=== PATIENT | female | born 1950 | race Caucasian/White ===

== ENCOUNTER 2018-12-09 20:28 | Emergency (ER) | payer MEDICARE, BC ==
[~2018-12-09] VITALS: Ht 162.6 cm; Wt 99.8 kg
[~2018-12-09 20:28] MED LIST: ASPI325 PO; OMEP40CA12 PO
[2018-12-09 21:28] LABS: BASOPHILS ABSOLUTE AUTO 0.03 K/mm3 (0.00-0.23); BASOPHILS PERCENT AUTO 1 % (0-2); EOSINOPHILS ABSOLUTE AUTO 0.12 K/mm3 (0.00-0.68); EOSINOPHILS PERCENT AUTO 3 % (0-6); Hemoglobin 12.2 g/dL (11.5-16.0); IMMATURE GRAN ABSOLUTE AUTO 0.02 K/mm3 (0.00-0.10); IMMATURE GRAN PERCENT AUTO 0 % (0-1); LYMPHOCYTES ABSOLUTE AUTO 0.89 K/mm3 (0.84-5.20); LYMPHOCYTES PERCENT AUTO 19 % (21-46); MONOCYTES ABSOLUTE AUTO 0.46 K/mm3 (0.16-1.47); MONOCYTES PERCENT AUTO 10 % (4-13); Mean Corpuscular HGB 29.3 pg (26.0-34.0); Mean Corpuscular HGB Conc 32.1 g/dL (31.5-36.5); Mean Corpuscular Volume 91 fL (80-100); Mean Platelet Volume 10.4 fL (9.1-12.4); NEUTROPHILS ABSOLUTE AUTO 3.06 K/mm3 (1.96-9.15); NEUTROPHILS PERCENT AUTO 67 % (41-73); Platelet Count 306 K/mm3 (150-400); RDW Coefficient Variation 13.5 % (11.7-14.2); RDW Standard Deviation 44.6 fL (35.1-46.3); Red Blood Cell Count 4.17 M/mm3 (3.80-5.20); White Blood Cell Count 4.58 K/mm3 (4.00-11.30)
[2018-12-09 21:34] LABS: Alanine Aminotransfer (ALT/SGP 27 U/L (12-78); Albumin, Blood 3.7 g/dL (3.4-5.0); Albumin/Globulin Ratio 1.1 (0.8-1.8); Alk Phos 83 U/L (50-136); Anion Gap 6 mmol/L (6-16); Aspartate Aminotrans (AST/SGOT 17 U/L (12-37); Bilirubin, Total 0.2 mg/dL (0.1-1.0); Blood Urea Nitrogen 13 mg/dL (8-24); Bun/Creatinine Ratio 12.6 (12.0-20.0); CO2, Blood 27 mmol/L (21-32); Calcium, Blood 8.1 mg/dL (8.5-10.1); Chloride, Blood 110 mmol/L (98-108); Creatinine, Blood 1.03 mg/dL (0.40-1.00); Globulin, Blood 3.5 g/dL (2.2-4.0); Glomerular Filtration Rate 56 (60-); Glucose, Blood 143 mg/dL (70-99); Potassium, Blood 3.8 mmol/L (3.5-5.5); Sodium, Blood 143 mmol/L (136-145); Total Protein, Blood 7.2 g/dL (6.4-8.2); Troponin I <0.015 ng/mL (0.000-0.040)
[2018-12-11] MEDS ORDERED: CEPH500 PO (22:19)
== END 2018-12-10 02:30 | disposition home or self-care (01) ==
LOC: ER 20:28
PROVIDERS: Physician Assistant
DX: R07.9 Chest pain, unspecified (principal); Z87.891 Personal history of nicotine dependence; Z88.6 Allergy status to analgesic agent
CPT/HCPCS: 71046; 80053; 84484; 85025; 93005; 93010; 99285-25

== ENCOUNTER 2018-12-11 20:38 | Emergency (ER) | payer MEDICARE, BC ==
[~2018-12-11] VITALS: Ht 162.6 cm; Wt 99.8 kg
[2018-12-11] MEDS ORDERED: CEPH500 PO (22:19)
== END 2018-12-11 22:57 | disposition home or self-care (01) ==
LOC: ER 20:38
DX: S91.331A Puncture wound without foreign body, right foot, initial encounter (principal); Z23 Encounter for immunization; K57.30 Diverticulosis of large intestine without perforation or abscess without bleeding; Z88.6 Allergy status to analgesic agent; Z79.899 Other long term (current) drug therapy; Z87.891 Personal history of nicotine dependence; W26.8XXA Contact with other sharp object(s), not elsewhere classified, initial encounter
CPT/HCPCS: 73630; 90471; 90714; 99283-25

== ENCOUNTER 2019-01-12 09:29 | Day surgery (SDC) | payer MEDICARE, BC ==
[~2019-01-12] VITALS: Ht 162.6 cm; Wt 102.0 kg
[~2019-01-12 09:29] MED LIST changes: +CEPH500 PO
--- NOTE | 2019-01-12 13:35 | NUR ---
PT TO RECOVERY ROOM POST PROCEDURE. PT IS AWAKE AND ANSWERING [place] APPROPRIATELY. PT REPORTS DISCOMFORT R ARM 3/10, ACHEY IN CHARACTER. PT DENIES SOB OR NAUSEA. R ARM WITH GRADE 4 HEMATOMA, TR BANDS X [address]. TR BANDS REMOVED AND MANUAL PRESSURE HELD TO R RADIAL SITE FOR 15 MIN. PT WITH POSTIVE CAP REFILL AND SENSATION TO R HAND. TR BAND PLACED OVER SITE AFTER 15 MIN OF PRESSURE, 13 CC AIR. PRESSURE HELD TO R ARM, REMAINS SWOLLEEN, BUT SOFT. DR ELISE HERE TO EVALUATE PT'S ARM, NEDRA WRAP APPLIED.
--- NOTE | 2019-01-12 13:50 | NUR ---
PT'S R RADIAL SITE STABLE POST MANULA PRESSURE, TR BAND PLACEMENT AND NEDRA WRAP. R ARM REMAINS SWOLLEENM, BUT REDUCED FROM INITIAL PRESENTATION AND SOFT; CAP REFILL AND SENSATION REMAIN INTACT.
--- NOTE | 2019-01-12 15:05 | NUR ---
DR MILLIGAN TO EVALUATE PT'S RIGHT ARM, REMAINS SWOLLEEN, BUT SOFT AND UNCHANGED FROM PREVIOUS ASSESSMENTS. PLAN TO START REMOVING AIR FROM TR BAND AT 1600.
--- NOTE | 2019-01-12 15:50 | NUR ---
DISCHARGE INSTRUCTIONS GONE OVER WITH PT, PT VERBALIZES UNDERSTANDING OF THE INSTRUCTIONS PROVIDED.
--- NOTE | 2019-01-12 17:06 | NUR ---
DR MELGOZA NOTIFIED OF PT'S ELEVATED B/P, ORDERS RECEIVED; ADMINISTERED [address] ELISE WILL SEND PT HOME WITH PRESCRIPTION FOR NORVASC.
--- NOTE | 2019-01-12 17:20 | NUR ---
PT'S R RADIAL SITE UNCHANGED, TR BAND REMOVED, SITE CLEANED AND CLOTH DOT APPLIED. PT GOING HOME WITH SLING FOR R ARM. PT DRESSED SELF WITHOUT POROBLEM, IV REMOVED-CANNULA INTACT.
--- NOTE | 2019-01-12 18:07 | NUR ---
PT REVEIVED DISCHARGE INSTRUCTIONS, AND SUPPLEMENTAL INFORMATION CONCERNING RADIAL SITE CARE; VERBALIZED GOOD UNDERSTANDING. PT LEFT FACILITY WITH BROTHER AND SISTER VIA W/C, CONDITION STABLE.
== END 2019-01-13 17:15 | disposition home or self-care (01) ==
LOC: MHTC 09:29
DX: I25.110 Atherosclerotic heart disease of native coronary artery with unstable angina pectoris (principal); I25.84 Coronary atherosclerosis due to calcified coronary lesion; Z88.6 Allergy status to analgesic agent
CPT/HCPCS: 93454; 99152; C1769; C1894; J1644; J2250; J3010; J7030; Q9967

== ENCOUNTER → 2019-02-09 | Outpatient (CLI) | payer MEDICARE, BC ==
[2019-02-09 16:08] LABS: BASOPHILS ABSOLUTE AUTO 0.05 K/mm3 (0.00-0.23); BASOPHILS PERCENT AUTO 1 % (0-2); EOSINOPHILS ABSOLUTE AUTO 0.11 K/mm3 (0.00-0.68); EOSINOPHILS PERCENT AUTO 2 % (0-6); Hematocrit 41.2 % (33.0-51.0); Hemoglobin 13.4 g/dL (11.5-16.0); IMMATURE GRAN ABSOLUTE AUTO 0.01 K/mm3 (0.00-0.10); IMMATURE GRAN PERCENT AUTO 0 % (0-1); LYMPHOCYTES ABSOLUTE AUTO 0.85 K/mm3 (0.84-5.20); LYMPHOCYTES PERCENT AUTO 19 % (21-46); MONOCYTES ABSOLUTE AUTO 0.42 K/mm3 (0.16-1.47); MONOCYTES PERCENT AUTO 9 % (4-13); Mean Corpuscular HGB 28.5 pg (26.0-34.0); Mean Corpuscular HGB Conc 32.5 g/dL (31.5-36.5); Mean Corpuscular Volume 88 fL (80-100); Mean Platelet Volume 10.8 fL (9.1-12.4); NEUTROPHILS ABSOLUTE AUTO 3.12 K/mm3 (1.96-9.15); NEUTROPHILS PERCENT AUTO 69 % (41-73); Platelet Count 265 K/mm3 (150-400); RDW Coefficient Variation 12.8 % (11.7-14.2); RDW Standard Deviation 40.5 fL (35.1-46.3); Red Blood Cell Count 4.71 M/mm3 (3.80-5.20); White Blood Cell Count 4.56 K/mm3 (4.00-11.30)
[2019-02-09 16:21] LABS: Alanine Aminotransfer (ALT/SGP 25 U/L (12-78); Albumin, Blood 3.8 g/dL (3.4-5.0); Albumin/Globulin Ratio 1.1 (0.8-1.8); Alk Phos 82 U/L (40-126); Anion Gap 7 mmol/L (6-16); Aspartate Aminotrans (AST/SGOT 16 U/L (12-37); Bilirubin, Total 0.5 mg/dL (0.1-1.0); Blood Urea Nitrogen 17 mg/dL (8-24); CO2, Blood 28 mmol/L (21-32); Calcium, Blood 8.5 mg/dL (8.5-10.1); Chloride, Blood 109 mmol/L (98-108); Creatinine, Blood 1.06 mg/dL (0.40-1.00); Globulin, Blood 3.5 g/dL (2.2-4.0); Glomerular Filtration Rate 51 (60-); Glucose, Blood 101 mg/dL (70-99); Sodium, Blood 144 mmol/L (136-145); Total Protein, Blood 7.3 g/dL (6.4-8.2)
[2019-02-09 16:47] LABS: Troponin I <0.017 ng/mL (0.000-0.040)
== END | disposition home or self-care (01) ==
LOC: LAB SHORT 16:04 → LAB EV 16:04
PROVIDERS: Internal Medicine
DX: R06.00 Dyspnea, unspecified (principal)
CPT/HCPCS: 80053; 84484; 85025

== ENCOUNTER → 2019-09-25 | Outpatient (CLI) | payer MEDICARE, BC ==
[~2019-09-25] MED LIST changes: +CARVEDILOL6.25 MG PO; +Hydrochloroth12.5 MG PO; +LIPITOR80 MG PO; +Prilosec Otc20 MG PO
[2019-09-25 19:55] LABS: BASOPHILS ABSOLUTE AUTO 0.04 K/mm3 (0.00-0.23); BASOPHILS PERCENT AUTO 1 % (0-2); EOSINOPHILS ABSOLUTE AUTO 0.14 K/mm3 (0.00-0.68); EOSINOPHILS PERCENT AUTO 3 % (0-6); Hematocrit 24.7 % (33.0-51.0); Hemoglobin 6.6 g/dL (11.5-16.0); IMMATURE GRAN ABSOLUTE AUTO 0.02 K/mm3 (0.00-0.10); IMMATURE GRAN PERCENT AUTO 1 % (0-1); LYMPHOCYTES ABSOLUTE AUTO 1.02 K/mm3 (0.84-5.20); LYMPHOCYTES PERCENT AUTO 24 % (21-46); MONOCYTES ABSOLUTE AUTO 0.61 K/mm3 (0.16-1.47); MONOCYTES PERCENT AUTO 14 % (4-13); Mean Corpuscular HGB 21.5 pg (26.0-34.0); Mean Corpuscular HGB Conc 26.7 g/dL (31.5-36.5); Mean Corpuscular Volume 81 fL (80-100); Mean Platelet Volume 10.4 fL (9.1-12.4); NEUTROPHILS PERCENT AUTO 58 % (41-73); Platelet Count 435 K/mm3 (150-400); RDW Coefficient Variation 21.6 % (11.7-14.2); RDW Standard Deviation 56.9 fL (35.1-46.3); Red Blood Cell Count 3.07 M/mm3 (3.80-5.20); White Blood Cell Count 4.33 K/mm3 (4.00-11.30)
[2019-09-25 20:13] LABS: Percent Saturation 4.3 % (15.0-50.0)
== END ==
LOC: LAB SHORT 18:29 → LAB 18:29
PROVIDERS: Hospitalist
DX: D50.9 Iron deficiency anemia, unspecified (principal)
CPT/HCPCS: 83540; 83550; 85025

== ENCOUNTER 2019-09-28 00:13 | Day surgery (SDC) | payer MEDICARE, BC ==
[~2019-09-28 00:13] MED LIST changes: -CARVEDILOL6.25 MG PO; -Hydrochloroth12.5 MG PO; -LIPITOR80 MG PO; -Prilosec Otc20 MG PO
[2019-09-28] MEDS ORDERED: Prilosec Otc20 MG PO (07:48)
[2019-09-28] MEDS ORDERED: LIPITOR80 MG PO (07:49)
[2019-09-28] MEDS ORDERED: Hydrochloroth12.5 MG PO (07:49)
[2019-09-28] MEDS ORDERED: CARVEDILOL6.25 MG PO (07:49)
== END 2019-09-28 12:00 | disposition home or self-care (01) ==
LOC: ATC 00:13
DX: D50.9 Iron deficiency anemia, unspecified (principal)
CPT/HCPCS: 36415; 36430; 86850; 86900; 86901; 86923; J7050; P9016

== ENCOUNTER → 2019-10-04 | Outpatient (CLI) | payer MEDICARE, BC ==
[~2019-10-04] MED LIST changes: +CARVEDILOL6.25 MG PO; +Hydrochloroth12.5 MG PO; +LIPITOR80 MG PO; +Prilosec Otc20 MG PO
[2019-10-04 15:31] LABS: BASOPHILS ABSOLUTE AUTO 0.07 K/mm3 (0.00-0.23); BASOPHILS PERCENT AUTO 2 % (0-2); EOSINOPHILS ABSOLUTE AUTO 0.17 K/mm3 (0.00-0.68); EOSINOPHILS PERCENT AUTO 4 % (0-6); Hematocrit 37.9 % (33.0-51.0); Hemoglobin 10.6 g/dL (11.5-16.0); IMMATURE GRAN ABSOLUTE AUTO 0.01 K/mm3 (0.00-0.10); IMMATURE GRAN PERCENT AUTO 0 % (0-1); LYMPHOCYTES ABSOLUTE AUTO 1.09 K/mm3 (0.84-5.20); LYMPHOCYTES PERCENT AUTO 25 % (21-46); MONOCYTES ABSOLUTE AUTO 0.54 K/mm3 (0.16-1.47); MONOCYTES PERCENT AUTO 12 % (4-13); Mean Corpuscular HGB 23.5 pg (26.0-34.0); Mean Platelet Volume 10.1 fL (9.1-12.4); NEUTROPHILS ABSOLUTE AUTO 2.47 K/mm3 (1.96-9.15); NEUTROPHILS PERCENT AUTO 57 % (41-73); Platelet Count 348 K/mm3 (150-400); RDW Coefficient Variation 21.7 % (11.7-14.2); RDW Standard Deviation 67.6 fL (35.1-46.3); Red Blood Cell Count 4.51 M/mm3 (3.80-5.20); White Blood Cell Count 4.35 K/mm3 (4.00-11.30)
[2019-10-04 15:40] LABS: Mean Corpuscular Volume 84 fL (80-100)
== END | disposition home or self-care (01) ==
LOC: LAB SHORT 10:38 → LAB 10:38
PROVIDERS: Hospitalist
DX: D50.9 Iron deficiency anemia, unspecified (principal)
CPT/HCPCS: 85025

== ENCOUNTER 2021-10-26 11:03 | Emergency (ER) | payer MEDICARE, BC ==
[~2021-10-26] VITALS: Ht 162.6 cm; Wt 106.6 kg
[~2021-10-26 11:03] MED LIST changes: +ASPI81CH; +OMEP20ER PO
== END 2021-10-26 14:49 | disposition home or self-care (01) ==
LOC: ER 11:03
DX: U07.1 COVID-19 (principal); Z23 Encounter for immunization; Z95.1 Presence of aortocoronary bypass graft; Z79.82 Long term (current) use of aspirin; Z79.899 Other long term (current) drug therapy; Z88.6 Allergy status to analgesic agent
CPT/HCPCS: 99282-25; M0222

== ENCOUNTER → 2022-11-16 | Outpatient (CLI) | payer MEDICARE, BC ==
[2022-11-16 16:02] LABS: BASOPHILS ABSOLUTE AUTO 0.04 K/mm3 (0.00-0.23); BASOPHILS PERCENT AUTO 1 % (0-2); EOSINOPHILS ABSOLUTE AUTO 0.07 K/mm3 (0.00-0.68); EOSINOPHILS PERCENT AUTO 2 % (0-6); Hematocrit 45.4 % (33.0-51.0); Hemoglobin 15.2 g/dL (11.5-16.0); IMMATURE GRAN PERCENT AUTO 0 % (0-1); LYMPHOCYTES ABSOLUTE AUTO 0.94 K/mm3 (0.84-5.20); LYMPHOCYTES PERCENT AUTO 22 % (21-46); MONOCYTES ABSOLUTE AUTO 0.44 K/mm3 (0.16-1.47); MONOCYTES PERCENT AUTO 10 % (4-13); Mean Corpuscular HGB 28.7 pg (26.0-34.0); Mean Corpuscular HGB Conc 33.5 g/dL (31.5-36.5); Mean Corpuscular Volume 86 fL (80-100); Mean Platelet Volume 11.5 fL (9.1-12.4); NEUTROPHILS ABSOLUTE AUTO 2.87 K/mm3 (1.96-9.15); NEUTROPHILS PERCENT AUTO 66 % (41-73); Platelet Count 263 K/mm3 (150-400); RDW Coefficient Variation 12.6 % (11.7-14.2); RDW Standard Deviation 39.5 fL (35.1-46.3); Red Blood Cell Count 5.29 M/mm3 (3.80-5.20); White Blood Cell Count 4.36 K/mm3 (4.00-11.30)
[2022-11-16 16:25] LABS: Percent Saturation 26.8 % (15.0-50.0)
== END ==
LOC: LAB 13:34 → LAB SHORT 13:34
PROVIDERS: Hospitalist
DX: D50.9 Iron deficiency anemia, unspecified (principal)
CPT/HCPCS: 82728; 83540; 83550; 85025

== ENCOUNTER → 2023-07-20 | Outpatient (CLI) | payer MEDICARE, BC ==
[2023-07-20 19:02] LABS: BASOPHILS ABSOLUTE AUTO 0.07 K/mm3 (0.00-0.23); BASOPHILS PERCENT AUTO 1 % (0-2); EOSINOPHILS ABSOLUTE AUTO 0.11 K/mm3 (0.00-0.68); EOSINOPHILS PERCENT AUTO 2 % (0-6); Hematocrit 45.3 % (33.0-51.0); Hemoglobin 15.2 g/dL (11.5-16.0); IMMATURE GRAN ABSOLUTE AUTO 0.02 K/mm3 (0.00-0.10); IMMATURE GRAN PERCENT AUTO 0 % (0-1); LYMPHOCYTES PERCENT AUTO 22 % (21-46); MONOCYTES ABSOLUTE AUTO 0.54 K/mm3 (0.16-1.47); MONOCYTES PERCENT AUTO 9 % (4-13); Mean Corpuscular HGB 29.2 pg (26.0-34.0); Mean Corpuscular HGB Conc 33.6 g/dL (31.5-36.5); Mean Corpuscular Volume 87 fL (80-100); NEUTROPHILS ABSOLUTE AUTO 3.83 K/mm3 (1.96-9.15); NEUTROPHILS PERCENT AUTO 65 % (41-73); Platelet Count 293 K/mm3 (150-400); RDW Standard Deviation 40.8 fL (35.1-46.3); Red Blood Cell Count 5.21 M/mm3 (3.80-5.20); White Blood Cell Count 5.87 K/mm3 (4.00-11.30)
[2023-07-20 19:27] LABS: Percent Saturation 21.4 % (15.0-50.0)
[2023-07-20 19:32] LABS: Albumin, Blood 3.9 g/dL (3.4-5.0); Albumin/Globulin Ratio 1.1 (0.8-1.8); Bilirubin, Total 0.8 mg/dL (0.1-1.0); Bun/Creatinine Ratio 22.2 (12.0-20.0); Calcium, Blood 8.9 mg/dL (8.5-10.1); Creatinine, Blood 0.95 mg/dL (0.40-1.00); Globulin, Blood 3.4 g/dL (2.2-4.0); Potassium, Blood 3.9 mmol/L (3.5-5.5); Total Protein, Blood 7.3 g/dL (6.4-8.2)
== END | disposition home or self-care (01) ==
LOC: LAB SHORT 17:49
PROVIDERS: Hospitalist
DX: D50.9 Iron deficiency anemia, unspecified (principal); I10 Essential (primary) hypertension
CPT/HCPCS: 80053; 82728; 83540; 83550; 85025

== ENCOUNTER → 2024-05-14 | Outpatient (CLI) | payer MEDICARE, BC ==
[2024-05-14 11:31] LABS: BASOPHILS ABSOLUTE AUTO 0.03 K/mm3 (0.00-0.23); BASOPHILS PERCENT AUTO 1 % (0-2); EOSINOPHILS ABSOLUTE AUTO 0.05 K/mm3 (0.00-0.68); EOSINOPHILS PERCENT AUTO 1 % (0-6); Hematocrit 42.7 % (33.0-51.0); Hemoglobin 14.4 g/dL (11.5-16.0); IMMATURE GRAN ABSOLUTE AUTO 0.02 K/mm3 (0.00-0.10); IMMATURE GRAN PERCENT AUTO 0 % (0-1); LYMPHOCYTES ABSOLUTE AUTO 0.95 K/mm3 (0.84-5.20); LYMPHOCYTES PERCENT AUTO 20 % (21-46); MONOCYTES ABSOLUTE AUTO 0.51 K/mm3 (0.16-1.47); MONOCYTES PERCENT AUTO 11 % (4-13); Mean Corpuscular HGB 29.1 pg (26.0-34.0); Mean Corpuscular HGB Conc 33.7 g/dL (31.5-36.5); Mean Corpuscular Volume 86 fL (80-100); Mean Platelet Volume 10.1 fL (9.1-12.4); NEUTROPHILS ABSOLUTE AUTO 3.32 K/mm3 (1.96-9.15); NEUTROPHILS PERCENT AUTO 68 % (41-73); Platelet Count 247 K/mm3 (150-400); RDW Standard Deviation 40.2 fL (35.1-46.3); Red Blood Cell Count 4.95 M/mm3 (3.80-5.20); White Blood Cell Count 4.88 K/mm3 (4.00-11.30)
[2024-05-14 11:42] LABS: Albumin/Globulin Ratio 1.1 (0.8-1.8); Bilirubin, Total 1.1 mg/dL (0.1-1.0); Bun/Creatinine Ratio 20.2 (12.0-20.0); Calcium, Blood 9.1 mg/dL (8.5-10.1); Creatinine, Blood 1.04 mg/dL (0.40-1.00); Globulin, Blood 3.5 g/dL (2.2-4.0); Potassium, Blood 3.8 mmol/L (3.5-5.5); Total Protein, Blood 7.5 g/dL (6.4-8.2)
== END | disposition home or self-care (01) ==
LOC: LAB 11:27 → LAB SHORT 11:27
PROVIDERS: Physician Assistant Medical
DX: R42 Dizziness and giddiness (principal)
CPT/HCPCS: 80053; 85025

== ENCOUNTER 2024-09-20 08:59 | Day surgery (SDC) | payer MEDICARE, BC ==
[~2024-09-20] VITALS: Ht 162.6 cm; Wt 108.2 kg
[~2024-09-20 08:59] MED LIST changes: +Balanced Salt Epinephrine Irrigation Solution 500 mL IR SCH; +Diazepam 5 MG Tab PO PRN; +Diazepam 5 MG Tab PO SCH; +Lidocaine HCl/Pf 1% 5 ML VIAL XX SCH; +Moxifloxacin HCL 0.5 MG/0.1 ML 0.4MLSYR RIGHTEYE SCH; +Ondansetron 4 MG SoluTab MM PRN; +PHENYLEPHRINE\\TROPICAMIDE\\TETRACAINE OPHTHALMIC DILATING SOLN RIGHTEYE PRN; +Povidone-Iodine 450 DROP/30 ML Solution ONE; +Povidone-Iodine 450 DROP/30 ML Solution RIGHTEYE SCH; +Tetracaine HCl/Pf 0.5% Opth Soln 4 ml ONE; +Triamcinolone Inj Susp 40 MG / ML 1ML Vial INJ SCH; +Triamcinolone Inj Susp 40 MG / ML 1ML Vial ONE
[2024-09-20] MEDS ORDERED: Diazepam 10 MG Tab ONE (09:22)
[2024-09-20] MEDS ORDERED: Prinivil10 MG PO (09:40)
--- NOTE | 2024-09-20 10:39 | NUR ---
09/20/24 1039 Vianey Fernandez BP-146/63 P-57 [id number]% W/10L BLOW BY O2
[2024-09-20 10:57] VITALS: BP 126/72
== END 2024-09-20 11:17 | disposition home or self-care (01) ==
LOC: ORSCSDS 08:59
PROVIDERS: Ophthalmology
PROC: 08RJ3JZ Replacement of Right Lens with Synthetic Substitute, Percutaneous Approach (ICD-10-PCS; principal; 2024-09-20 10:30)
DX: H25.813 Combined forms of age-related cataract, bilateral (principal); H52.4 Presbyopia; I25.10 Atherosclerotic heart disease of native coronary artery without angina pectoris; K21.9 Gastro-esophageal reflux disease without esophagitis; I10 Essential (primary) hypertension; E78.5 Hyperlipidemia, unspecified; Z79.82 Long term (current) use of aspirin; Z79.899 Other long term (current) drug therapy
CPT/HCPCS: A9270; J3301; V2632

== ENCOUNTER 2024-09-27 09:56 | Day surgery (SDC) | payer MEDICARE, BC ==
[~2024-09-27] VITALS: Ht 162.6 cm; Wt 107.7 kg
[~2024-09-27 09:56] MED LIST changes: +Moxifloxacin HCL 0.5 MG/0.1 ML 0.4MLSYR LEFTEYE SCH; -Moxifloxacin HCL 0.5 MG/0.1 ML 0.4MLSYR RIGHTEYE SCH; +PHENYLEPHRINE\\TROPICAMIDE\\TETRACAINE OPHTHALMIC DILATING SOLN LEFTEYE PRN; -PHENYLEPHRINE\\TROPICAMIDE\\TETRACAINE OPHTHALMIC DILATING SOLN RIGHTEYE PRN; +Povidone-Iodine 450 DROP/30 ML Solution LEFTEYE SCH; -Povidone-Iodine 450 DROP/30 ML Solution RIGHTEYE SCH; +Prinivil10 MG PO
[2024-09-27] MEDS ORDERED: Diazepam 10 MG Tab ONE (10:09)
--- NOTE | 2024-09-27 10:21 | NUR ---
09/27/24 1021 Raissa Arevalo UPON ARRIVAL PT RATES ANXIETY 0/10
--- NOTE | 2024-09-27 11:18 | NUR ---
09/27/24 1118 Cinthia Aquino BP 139/90 SP02 97 HR 57
[2024-09-27 12:02] VITALS: BP 155/78
== END 2024-09-27 11:55 | disposition home or self-care (01) ==
LOC: ORSCSDS 09:56
PROVIDERS: Ophthalmology
PROC: 08RK3JZ Replacement of Left Lens with Synthetic Substitute, Percutaneous Approach (ICD-10-PCS; principal; 2024-09-27 11:30)
DX: H25.812 Combined forms of age-related cataract, left eye (principal); H52.4 Presbyopia; Z96.1 Presence of intraocular lens; H35.363 Drusen (degenerative) of macula, bilateral; Z95.1 Presence of aortocoronary bypass graft; E78.5 Hyperlipidemia, unspecified; I10 Essential (primary) hypertension; I25.10 Atherosclerotic heart disease of native coronary artery without angina pectoris; K21.9 Gastro-esophageal reflux disease without esophagitis; Z79.899 Other long term (current) drug therapy
CPT/HCPCS: A9270; J3301; V2632